=== PATIENT | male | born 1955 | race Two or more races ===

== ENCOUNTER → 2016-11-23 | Outpatient (REF) | payer OTHER | LOC: M SMT 13:04 | PROVIDERS: ATTEND Nurse Practitioner Women's Health | DX: R97.20 Elevated prostate specific antigen [PSA] (principal) ==

== ENCOUNTER → 2016-12-04 | Outpatient (CLI) | payer BC, OTHER ==
[~2016-12-04] MED LIST: ASPI81CH17 PO; ASPI81TAEC PO; ATOR1TAB21 PO; CIPR500T3 PO; CIPR500T89 PO; DOCU100C PO; IBUPOTC PO; NICO14DI20 TD; PEG1POW PO; PERC5TAB6 PO; PERCOCET PO; VITA100037 PO
--- NOTE | 2016-12-04 13:33 | REP ---
TRANSRECTAL PROSTATE ULTRASOUND: 12/04/2016. Clinical history: Elevated PSA. Findings: Images from ultrasound guidance provided to Dr. Martinez of the Urology division for transrectal prostate needle biopsy reviewed. The images show prostate measuring 4.5 x 2.8 x 4.2 cm giving calculated prostate volume 27.7 ml. Seminal vesicles are symmetric and unremarkable. Prostate gland appeared heterogeneous and has some scattered calcifications within it. Technologist documented 12 needle passes for biopsy by the attending urologist. Impression: 1. Status post transrectal needle biopsy of the prostate as described. Heterogeneous prostate appearance with calcifications. Signed by Kevin Gonsalez MD 12/04/2016 03:42 P
== END | disposition home or self-care (01) ==
LOC: M SMT PRO 08:44 → EDUNIT# 09:00
PROVIDERS: ATTEND Nurse Practitioner Women's Health
DX: C61 Malignant neoplasm of prostate (principal); N41.8 Other inflammatory diseases of prostate
CPT/HCPCS: 76872; 76942; G0416

== ENCOUNTER → 2016-12-11 | Outpatient (CLI) | payer OTHER ==
[2016-12-11 13:24] LABS: MEAN CORPUSCULAR HEMOGLOBIN 31.9 pg (27.0-33.0); MEAN CORPUSCULAR HGB CONC 35.4 g/dl (32.0-36.5); MEAN CORPUSCULAR VOLUME 89.9 fl (80.0-96.0); RED CELL DISTRIBUTION WIDTH 12.3 % (11.5-14.5); WHITE BLOOD COUNT 5.1 K/mm3 (4.0-10.0)
--- NOTE | 2016-12-11 13:27 | REP ---
Clinical: Prostate cancer . Comparison: None . Technique: PA and lateral. Findings: The mediastinum and cardiac silhouette are normal. The lung brooks are clear and without acute consolidation, effusion, or pneumothorax. The skeletal structures are intact and normal. Impression: 1. No acute cardiopulmonary process. Signed by Jefferson Vaughan MD 12/11/2016 01:18 P
[2016-12-11 13:36] LABS: INR 1.07
[2016-12-11 13:58] LABS: ANION GAP 6 MEQ/L (8-16); BLOOD UREA NITROGEN 12 MG/DL (7-18); CALCIUM LEVEL 8.6 MG/DL (8.8-10.2); CARBON DIOXIDE LEVEL 28 MEQ/L (21-32); CHLORIDE LEVEL 104 MEQ/L (98-107); CREATININE FOR GFR 0.78 MG/DL (0.70-1.30); GLOMERULAR FILTRATION RATE > 60.0 (>49); GLUCOSE, FASTING 101 MG/DL (80-110); POTASSIUM SERUM 4.4 MEQ/L (3.5-5.1); SODIUM LEVEL 138 MEQ/L (136-145)
--- NOTE | 2016-12-11 17:06 | ECGEPIP ---
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 Electronically Signed On 12-11-2016 16:48:57 EST by Benjamin Juárez
== END ==
LOC: M LAB 12:24
PROVIDERS: ATTEND Urology
DX: Z01.818 Encounter for other preprocedural examination (principal); C61 Malignant neoplasm of prostate

== ENCOUNTER 2016-12-22 05:43 | Inpatient (IN) | payer BC, OTHER ==
[2016-12-22] VITALS (7 sets, daily range): BP systolic 126–154; BP diastolic 60–88
[~2016-12-22] VITALS: Ht 175.3 cm; Wt 83.9 kg
[~2016-12-22 05:43] MED LIST changes: -ASPI81CH17 PO; -ASPI81TAEC PO; -CIPR500T3 PO; -CIPR500T89 PO; -DOCU100C PO; -IBUPOTC PO; -NICO14DI20 TD; -PEG1POW PO; -PERC5TAB6 PO; -PERCOCET PO
[2016-12-22] MEDS ORDERED: LR 1,000 ML IV SCH ×2 (06:00→11:30)
[2016-12-22] MEDS ORDERED: D5W/0.2% SODIUM CHLORIDE 250 ML IV SCH (06:00)
[2016-12-22] MEDS ORDERED: ASPI81CH17 PO (06:47)
[2016-12-22] MEDS ORDERED: METHYLENE BLUE 0.5% (5MG/ML) 10 ML AMP (PROVAYBLUE)(Q9968 PER 1MG) As Ordered ONE (07:11)
[2016-12-22] MEDS ORDERED: METOCLOPRAMIDE INJ 10MG/2ML VIAL (J2765) As Ordered ONE (07:55)
[2016-12-22] MEDS ORDERED: NEOSTIGMINE 1MG/ML 5 ML SYRINGE (J2710) As Ordered ONE (07:55)
[2016-12-22] MEDS ORDERED: fentaNYL 250 MCG/5 ML INJECTION (J3010) As Ordered ONE (07:55)
[2016-12-22] MEDS ORDERED: ONDANSETRON 4MG/2ML VIAL (J2405) As Ordered ONE (07:55)
[2016-12-22] MEDS ORDERED: PROPOFOL 200 MG/20 ML VIAL As Ordered ONE (07:55)
[2016-12-22] MEDS ORDERED: GLYCOPYRROLATE INJ 0.2 MG/ML 2 ML VIAL As Ordered ONE (07:55)
[2016-12-22] MEDS ORDERED: LIDOCAINE 2% INJ 100 MG/5 ML SDV (FOR ANES.) As Ordered ONE (07:55)
[2016-12-22] MEDS ORDERED: ROCURONIUM BROMIDE 50 MG/5 ML VIAL As Ordered ONE (07:55)
[2016-12-22] MEDS ORDERED: diphenhydrAMINE INJ 50MG/ML VIAL (J1200) As Ordered ONE (07:55)
[2016-12-22] MEDS ORDERED: MIDAZOLAM INJ 2 MG/2 ML VIAL (J2250) As Ordered ONE (07:55)
[2016-12-22] MEDS ORDERED: HYDROmorphone HCL 2 MG/ML 1ML VIAL (J1170) As Ordered ONE (08:05)
[2016-12-22] MEDS ORDERED: LABETALOL HCL 100 MG/20 ML VIAL As Ordered ONE (08:18)
[2016-12-22] MEDS ORDERED: KCL 20MEQ IN D5/.45NACL 1000ML As Ordered ONE (11:29)
[2016-12-22] MEDS ORDERED: KETOROLAC 30 MG/ML VIAL (J1885) As Ordered ONE (11:29)
[2016-12-22] MEDS ORDERED: ONDANSETRON 4MG/2ML VIAL (J2405) IV PRN ×2 (11:30→11:45)
[2016-12-22] MEDS ORDERED: METOCLOPRAMIDE INJ 10MG/2ML VIAL (J2765) IV PRN (11:30)
[2016-12-22] MEDS ORDERED: MORPHINE 2 MG/ML 1ML SYRINGE IV PRN (11:30)
[2016-12-22] MEDS ORDERED: PERCOCET 5MG/325MG TAB PO PRN (11:30)
[2016-12-22] MEDS ORDERED: fentaNYL 100 MCG/2 ML INJECTION (J3010) IV PRN (11:30)
[2016-12-22 11:34] LABS: MEAN CORPUSCULAR HEMOGLOBIN 32.1 pg (27.0-33.0); MEAN CORPUSCULAR HGB CONC 34.2 g/dl (32.0-36.5); MEAN CORPUSCULAR VOLUME 93.9 fl (80.0-96.0); RED CELL DISTRIBUTION WIDTH 12.2 % (11.5-14.5); WHITE BLOOD COUNT 9.1 K/mm3 (4.0-10.0)
[2016-12-22] MEDS: KCL 20MEQ IN D5/0.45NS 1000ML 1,000 ML IV SCH ×2 (11:36→18:14)
[2016-12-22 11:44] LABS: ANION GAP 8 MEQ/L (8-16); BLOOD UREA NITROGEN 17 MG/DL (7-18); CALCIUM LEVEL 8.3 MG/DL (8.8-10.2); CARBON DIOXIDE LEVEL 25 MEQ/L (21-32); CHLORIDE LEVEL 105 MEQ/L (98-107); CREATININE FOR GFR 0.96 MG/DL (0.70-1.30); GLOMERULAR FILTRATION RATE > 60.0 (>49); GLUCOSE, FASTING 141 MG/DL (80-110); POTASSIUM SERUM 4.8 MEQ/L (3.5-5.1); SODIUM LEVEL 138 MEQ/L (136-145)
[2016-12-22] MEDS ORDERED: MORPHINE 4 MG/ML 1ML SYRINGE IV PRN (11:45)
[2016-12-22] MEDS: oxyCODONE 5MG TAB PO PRN ×2 (11:45→21:02)
[2016-12-22] MEDS: PANTOPRAZOLE 40MG INJ (PROTONIX) (C9113) IV SCH (13:06)
[2016-12-22] MEDS ORDERED: ACETAMINOPHEN TAB 650MG DOSE (2X325MG) PO SCH (14:00)
[2016-12-22] MEDS: ACETAMINOPHEN 650MG ER TAB (TYLENOL ARTHRITIS) PO SCH ×2 (14:00→21:03)
[2016-12-22] MEDS: CIPROFLOXACIN 500 MG TAB PO SCH (17:22)
[2016-12-22] MEDS ORDERED: KETOROLAC 30 MG/ML VIAL (J1885) IV SCH (20:00)
[2016-12-22] MEDS: KETOROLAC 30 MG/ML VIAL (J1885) IV SCH (21:04)
[2016-12-23] MEDS: oxyCODONE 5MG TAB PO PRN ×4 (01:47→16:04)
[2016-12-23] MEDS: KCL 20MEQ IN D5/0.45NS 1000ML 1,000 ML IV SCH ×2 (01:52→09:48)
[2016-12-23 02:00] VITALS: BP 159/77
[2016-12-23] MEDS: KETOROLAC 30 MG/ML VIAL (J1885) IV SCH (05:00)
[2016-12-23] MEDS: CIPROFLOXACIN 500 MG TAB PO SCH (05:08)
[2016-12-23 06:00] VITALS: BP 137/67
[2016-12-23] MEDS: ACETAMINOPHEN 650MG ER TAB (TYLENOL ARTHRITIS) PO SCH ×2 (06:19→13:39)
[2016-12-23 07:04] LABS: MEAN CORPUSCULAR HEMOGLOBIN 31.8 pg (27.0-33.0); MEAN CORPUSCULAR VOLUME 96.1 fl (80.0-96.0); RED CELL DISTRIBUTION WIDTH 12.5 % (11.5-14.5); WHITE BLOOD COUNT 6.4 K/mm3 (4.0-10.0)
[2016-12-23 07:24] LABS: ANION GAP 8 MEQ/L (8-16); BLOOD UREA NITROGEN 11 MG/DL (7-18); CARBON DIOXIDE LEVEL 26 MEQ/L (21-32); CHLORIDE LEVEL 103 MEQ/L (98-107); CREATININE FOR GFR 0.83 MG/DL (0.70-1.30); GLOMERULAR FILTRATION RATE > 60.0 (>49); GLUCOSE, FASTING 130 MG/DL (80-110); POTASSIUM SERUM 4.4 MEQ/L (3.5-5.1); SODIUM LEVEL 137 MEQ/L (136-145)
[2016-12-23 10:00] VITALS: BP 142/74
--- NOTE | 2016-12-23 11:54 | RO ---
DATE OF PROCEDURE: 12/22/2016 PREPROCEDURE DIAGNOSIS: Prostate cancer. POSTPROCEDURE DIAGNOSIS: Prostate cancer. FINDINGS: Prostate and seminal vesicles. SURGERY PERFORMED: Robotic-assisted radicle prostatectomy. SURGEON: Dr. Se Martinez GAS LINE SERVICER: Mitzi Sosa NP ANESTHESIA: General. ESTIMATED BLOOD LOSS: 100 mL. COMPLICATIONS: None. HISTORY OF PRESENT ILLNESS: This is a 61-year-old male patient with clinical stage cT1c NxMx prostate cancer [place] 6, six positive biopsies out of 12. The patient has consented for a robotic-assisted radical prostatectomy and for this reason, we are doing this procedure today. PROCEDURE DESCRIPTION: In a patient in supine modified low lithotomy position under general anesthesia after prepping and draping the area of concern, which included the entire genitalia and abdomen, we started by doing an incision infraumbilically, longitudinally 2 cm in length in the midline. Through this incision, we opened the anterior Retzius fascia aponeurosis for about 2 cm in length longitudinally. In the midline, we reintroduced our finger and did a finger dissection of the Retzius space. We then introduced a balloon SpaceMaker to create a Retzius space further on. We then proceeded to take the balloon Spacemaker and put a balloon trocar, inflated the balloon trocar to 40 mL. Through this balloon trocar, we insufflated CO2 to distend the Retzius space with CO2. With the hand held robotic camera 0 degrees 10 mm, we assisted the placement of the other trocars in a fan-shaped manner, two on the right side, 8 mm metallic robotic trocars were placed, by each other by 8 cm, two on the left side, one 12 mm VersaStep for the multimedia production assistant port 8 cm away from the midline one 8 cm away from the VersaStep, one 8 mm robotic metallic trocar. All of the trocars were placed in a fan shaped manner. Once the trocars were positioned, the patient was positioned in steep Trendelenburg position. We then proceeded to dock the robot, using on the left arm monopolar scissors and on the right arm bipolar PK and a ProGrasp. We then proceeded to actively do defat by taking out the periprostatic fat to analyze the anatomy the prostate gland and the endopelvic fascia. We then proceeded with Monoplar scissors to score the endopelvic fascia on the left side, opening the left endopelvic fascia from base to apex and on the right side doing the same procedure. We then proceeded to actually change the scissors and the bipolar PK for two needle holders. With a CT1 needle and #0 Vicryl, we ligated the dorsal vein complex times two and then proceeded to actively, with the monopolar scissors, to cut the anterior bladder neck until we find the Langley catheter. We deflated the balloon of the Lagnley catheter, grabbed the Langley catheter with the third arm and put into traction the Langley with the third arm anteriorly to put into traction the posterior bladder neck. With Monopolar scissors, we dissected the posterior bladder neck and then landed into the vas deferens and seminal vesicles. The vas deferens and seminal vesicles were identified and we dissected the vas deferens and seminal vesicles bilaterally and with a ProGrasp we grabbed the vas deferens and seminal vesicles and pulled it up anteriorly to put into traction the posterior Denonvilliers fascia. We then scored the posterior Denonvilliers fascia with monopolar scissors and dissected the rectum away from the prostate gland from base to apex. With extra large Hem-o-loks we secured the prostatic arteries times four on the left side and times four on the right side. We then mobilized the prostate gland from base to apex. It was only attached to the dorsal vein complex. At that moment in time, we cut the dorsal vein complex with monopolar scissors and then secured the dorsal vein complex by doing hemostasis with a #3-0 V-Loc in a running fashion. Once hemostasis of the dorsal vein complex was secured, we cut the urethra and placed the prostate and seminal vesicles into a 10 mm Endo Catch bag. We then proceeded to grab our needle holders and do a posterior reconstruction Yair stitch with a #3-0 Vicryl in a running fashion. We then proceeded to do urethral vesicle anastomosis with a double needle absorbable linda suture of quill #2-0. We started at 6 o'clock in the bladder outside-in and inside-out in the urethra running 360 degrees around the clock. We then passed a #20 Georgian Langley catheter and inflated the balloon to 20 mL. We then tied our anastomosis. We took all the needles out and the count was correct. We then proceeded to test our anastomosis with 100 mL of normal saline. There were no leaks. At that moment in time, we undocked the third arm, took all the instruments out from the third arm, placed a J-P round drain, 15 to the pelvis to actually do a drainage to suction. We then took all the instruments out. Undocked the robot. Took the trocars out and then sutured ligated the drain to the skin with #3-0 nylon. We then proceeded to extract the prostate and seminal vesicles in an Endo Catch bag through the midline incision. We closed the midline incision with a UR 6, #2-0 Vicryl in a running fashion. We closed the skin with subcuticular stitches in a running fashion, #4-0 Monocryl. We placed Mastisol and Steri-Strips, 2x2, Telfa and Tegaderm in each incision of the trocars. The drain was placed to bulb suction. PLAN: The patient will pass to recovery and then to the floor. Once he is tolerating a regular diet and ambulating very well, he will be discharged home. He has the Langley catheter draining to gravity and a J-P to bulb suction. Specimens were sent for permanent pathology analysis as prostate and seminal vesicles. There were no complications of surgery. ESTIMATED BLOOD LOSS: 100 mL.
[2016-12-23] MEDS: PANTOPRAZOLE 40MG INJ (PROTONIX) (C9113) IV SCH (13:39)
[2016-12-23 14:00] VITALS: BP 134/84
[2016-12-23] MEDS ORDERED: CIPR500T3 PO (15:21)
[2016-12-23] MEDS ORDERED: PERCOCET PO (15:21)
--- NOTE | 2016-12-24 14:18 | DSES ---
DATE OF ADMISSION: 12/22/2016 DATE OF DISCHARGE: 12/23/2016 ADMISSION DIAGNOSIS: Prostate cancer. DISCHARGE DIAGNOSIS: Prostate cancer. SURGERY PERFORMED: Robotic-assisted radical prostatectomy. SURGEON: Se Martinez MD ADMITTING PHYSICIAN: Se Martinez MD DISCHARGE PHYSICIAN: Se Martinez MD HISTORY OF PRESENT ILLNESS: This is a 61-year-old male patient with a clinical stage cT1c Nx Mx prostate cancer, [place] 6 and six biopsies positive out of 12. The patient consented for robotic-assisted radical prostatectomy. For this reason, we carried out this surgery on 12/22/2016. HOSPITALIZATION COURSE: The patient, by postoperative day #1, was tolerating a regular diet. He was ambulating very well. Pain was controlled with oral pain medications. His urine output was adequate of around 700 mL per shift. His EFREN drainage was 70 mL and 20 mL the last shift. He has no nausea and no vomiting. The patient requested to go home and we agreed upon this. The patient will be going home with the following indications: - Ciprofloxacin 500 mg one tablet by mouth twice a day - Percocet 5/325 mg one tablet by mouth every 6 hours as needed for pain - stool softener as needed over the counter - ibuprofen as needed over the counter He cannot carry heavy weight lifting above 20 pounds. Langley will be going to gravity. No driving under narcotics for two weeks. He may shower, no sit baths. He will followup with us in 10 days for a voiding trial.
== END 2016-12-23 16:20 | disposition home or self-care (01) | DRG 484 ==
LOC: M OR 05:43 → M MS5PR 12:15
PROVIDERS: ADMIT Urology; ATTEND Urology
PROC: 8E0W4CZ Robotic Assisted Procedure of Trunk Region, Percutaneous Endoscopic Approach (ICD-10-PCS; 2016-12-22)
PROC: 0VT04ZZ Resection of Prostate, Percutaneous Endoscopic Approach (ICD-10-PCS; principal; 2016-12-22 07:30)
DX: C61 Malignant neoplasm of prostate (principal); E55.9 Vitamin D deficiency, unspecified; N52.9 Male erectile dysfunction, unspecified; E78.5 Hyperlipidemia, unspecified; F17.210 Nicotine dependence, cigarettes, uncomplicated; Z79.82 Long term (current) use of aspirin; Z79.899 Other long term (current) drug therapy; Z88.8 Allergy status to other drugs, medicaments and biological substances

== ENCOUNTER 2016-12-24 17:11 | Inpatient (IN) | payer BC, OTHER ==
[~2016-12-24] VITALS: Ht 172.7 cm; Wt 83.6 kg
[~2016-12-24 17:11] MED LIST changes: +ASPI81CH17 PO; +CIPR500T3 PO; +PERCOCET PO
[2016-12-24 18:44] LABS: BASO % 0.3 % (0.0-1.0); EOS # 0.2 K/mm3 (0.0-0.50); EOS % 2.5 % (0.0-3.0); LARGE UNSTAINED CELL # 0.1 K/mm3 (0.0-0.4); LARGE UNSTAINED CELL % 1.3 % (0.0-4.0); LYMPH # 1.1 K/mm3 (1.5-4.5); LYMPH % 14.1 % (24.0-44.0); MEAN CORPUSCULAR HEMOGLOBIN 32.1 pg (27.0-33.0); MEAN CORPUSCULAR HGB CONC 35.2 g/dl (32.0-36.5); MONO # 0.6 K/mm3 (0.0-0.8); MONO % 7.8 % (0.0-5.0); NEUTROPHILS # 5.4 K/mm3 (1.8-7.7); PLATELET COUNT, AUTOMATED 184 k/mm3 (150-450); RED CELL DISTRIBUTION WIDTH 12.2 % (11.5-14.5); WHITE BLOOD COUNT 7.3 K/mm3 (4.0-10.0)
[2016-12-24 19:00] LABS: MEAN CORPUSCULAR VOLUME 91.1 fl (80.0-96.0)
[2016-12-24 19:16] LABS: ALBUMIN 3.7 GM/DL (3.2-5.2); ALBUMIN/GLOBULIN RATIO 1.19 (1.00-1.93); ALKALINE PHOSPHATASE 108 U/L (45-117); ALT/SGPT 16 U/L (12-78); ANION GAP 10 MEQ/L (8-16); AST/SGOT 16 U/L (15-37); BILIRUBIN,DIRECT 0.1 MG/DL (0.0-0.2); BILIRUBIN,TOTAL 0.5 MG/DL (0.2-1.0); BLOOD UREA NITROGEN 7 MG/DL (7-18); CALCIUM LEVEL 8.4 MG/DL (8.8-10.2); CARBON DIOXIDE LEVEL 26 MEQ/L (21-32); CHLORIDE LEVEL 101 MEQ/L (98-107); CREATININE FOR GFR 0.74 MG/DL (0.70-1.30); GLOMERULAR FILTRATION RATE > 60.0 (>49); GLUCOSE, FASTING 105 MG/DL (80-110); POTASSIUM SERUM 3.8 MEQ/L (3.5-5.1); SODIUM LEVEL 137 MEQ/L (136-145); TOTAL PROTEIN 6.8 GM/DL (6.4-8.2)
--- NOTE | 2016-12-24 19:41 | REP ---
AP PORTABLE CHEST: 12/24/2016: Comparison: 12/11/2016. Clinical history: Dyspnea and cough. Findings: Seated portable chest with lordotic projection limits evaluation of the posterior and lower lung zones. Heart size exaggerated by projection but is normal. Overall the aorta is normal for age. Airway is intact. There is mild linear fibrotic change or atelectatic change in the bilateral lower lung zones. No effusion, dense consolidation with air bronchograms or other acute finding. There are pedicle screws and arch bars in the lower cervical spine from a posterior fusion with anterior plate and fusion device with screws in the lower cervical spine. Minor degenerative changes of the AC joints. Impression: 1. Minor subsegmental linear fibrotic or atelectatic change in the lung bases. No dense consolidation, effusion, cardiomegaly or edema. Signed by Kevin Gonsalez MD 12/24/2016 07:54 P
--- NOTE | 2016-12-24 20:47 | ECGEPIP ---
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
[2016-12-24 21:59] LABS: ABG BASE EXCESS 2.6 (-2.0-2.0); ABG HCO3 24.6 MEQ/L (22.0-26.0); ABG PARTIAL PRESSURE CO2 30.4 mmHg (35.0-45.0); ABG PARTIAL PRESSURE O2 74.3 mmHg (75.0-100.0); ABG STANDARD HCO3 26.8 MEQ/L (22.0-26.0); ABG TOTAL CO2 25.5 MEQ/L (23.0-31.0); ABG pH (ARTERIAL) 7.526 UNITS (7.350-7.450)
[2016-12-24] MEDS ORDERED: ISOVUE-370 76% 100ML VIAL (Q9967) As Ordered ONE (22:05)
--- NOTE | 2016-12-24 23:00 | REPUSA ---
CLINICAL HISTORY: Dyspnea, exclude PE. TECHNIQUE: Multiple incremental axial, coronal and oblique images are obtained from the thoracic inle t to the upper abdomen. Intravenous contrast material was administered as per pulmonary embolism prot ocol. COMMENTS: There is excellent opacification of pulmonary arterial system without evidence for pulmonary embolism . Aorta is of normal caliber without evidence for dissection or aneurysm. There is no evidence of pleural or parenchymal mass. There are no pleural effusions. There is no evid ence of hilar or mediastinal lymphadenopathy. The heart and great vessels are within normal limits. Images of the upper abdomen demonstrate no evidence of adrenal mass. Free air under the diaphragm is noted, viscus perforation is not excluded. Follow up with CT A/P is recommended. The bony structures are free of lytic or blastic lesions. Multilevel degenerative changes are seen in volving the visualized thoracolumbar spine. Scattered calcifications are seen involving the aorta and major branches compatible with atherosclero sis. IMPRESSION: No evidence for pulmonary embolism. Free air under the diaphragm is noted, viscus perforation is not excluded. Follow up with CT A/P is recommended. D/w Dr Monteiro at 10-50 pm EST. Thank you for your kind referral of this patient.
[2016-12-25] MEDS ORDERED: IBUPOTC PO (00:28)
[2016-12-25] MEDS ORDERED: DOCU100C PO (00:28)
[2016-12-25] MEDS ORDERED: PERC5TAB6 PO (00:28)
[2016-12-25] MEDS ORDERED: CIPR500T89 PO (00:28)
[2016-12-25] MEDS ORDERED: ASPI81TAEC PO (00:30)
[2016-12-25] MEDS ORDERED: FUROSEMIDE 40 MG/4 ML VIAL (J1940) IV ONE (02:45)
[2016-12-25] MEDS ORDERED: BISACODYL 5 MG TAB PO PRN (02:45)
[2016-12-25] MEDS ORDERED: LEVALBUTEROL 1.25 MG/0.5 ML CONCENTRATE NEB INH PRN (02:45)
[2016-12-25] MEDS ORDERED: IPRATROPIUM 0.02% SOLN 0.5MG/2.5 ML NEB INH PRN (02:45)
[2016-12-25] MEDS ORDERED: ACETAMINOPHEN TAB 650MG DOSE (2X325MG) PO PRN (02:45)
--- NOTE | 2016-12-25 03:53 | HPE ---
DATE OF ADMISSION: 12/25/2016 PRIMARY CARE PROVIDER: Dr. Mendez. CHIEF COMPLAINT: Shortness of breath. HISTORY OF PRESENT ILLNESS: The patient is a 61-year-old man who has been in his usual state of health. Several weeks ago he was diagnosed with prostate cancer and he was actually taken to the operating room on 12/22/2016, for a robotic-assisted radical prostatectomy by Dr. Martinez. The patient tolerated the procedure well and was discharged home the following day on the . Subsequently on the , he awoke with shortness of breath even at rest that prompted him to present to [facility]. While in the emergency room there and wearing oxygen, his symptoms did spontaneously resolve. He states that they completed all the same tests they did in [facility]'s Emergency Room today. He felt better and went home. Progressively his shortness of breath worsened once again to the point where he was feeling warm and hot flashes and then cool chills intermittently and it prompted him to present back to the emergency room, this time here at [facility]. At the present time, the patient tells me that his symptoms are actually better. His shortness of breath is improved at this time. He is not having the chills or hot flashes. While in the emergency room, he was noted to have an oxygen requirement of 2 liters where he had spontaneously dipped down saturations into the high 80s. While I am examining him at the present time, his saturation is 96% on 2 liters and I turned him down to 1 liter and he maintains his saturation. PAST MEDICAL HISTORY: 1. Tobacco, greater than 40 pack-year history. 2. Left bundle branch block. 3. Dyslipidemia. 4. Erectile dysfunction. 5. Vitamin D deficiency. HOME MEDICATIONS: - ciprofloxacin 500 mg by mouth twice a day - he has been discharged on Percocet as needed since his discharge as well - stool softener - ibuprofen 600 mg as needed for pain - Viagra 100 mg as needed - Lipitor 20 mg daily - aspirin 81 mg, the patient has not taken for 1 month - vitamin D 1000 units daily, the patient has not taken for 1 month PAST SURGICAL HISTORY: 1. Cervical metal plate secondary to degenerative cervical disease. 2. Left inguinal hernia repair. ALLERGIES: The patient has an allergy CHANTIX, he gets anxiety. FAMILY HISTORY: Noncontributory. REVIEW OF SYSTEMS: Negative other than history of present illness (HPI). SOCIAL HISTORY: The patient is an active smoker with a 40 pack-year history. He denies any alcohol or illicit drug use. He lives with his family, who all accompany him in the emergency room. PHYSICAL EXAMINATION: VITAL SIGNS: Temperature 97.6, pulse 88, respiratory rate 15, blood pressure 154/88, oxygen saturation 96% on 1 liter of oxygen. GENERAL: He is a pleasant, elderly, man lying in bed at a 30 degree angle. He does not appear to be in any acute distress. He appears quite comfortable at this time. He is accompanied by his , his daughter and son-in-law. HEENT: Cranial nerves II-XII are grossly intact. He has moist mucous membranes. I do not appreciate significant elevation of central venous pressure (CVP) on exam, but he does have some worsening shortness of breath when lying flat. CARDIOVASCULAR EXAMINATION: S1, S2, regular. RESPIRATORY EXAMINATION: Fairly clear. ABDOMINAL EXAMINATION: Benign. EXTREMITIES: No clubbing, cyanosis. There is trace edema bilaterally. LABORATORY STUDIES: WBC 7.3, hemoglobin 13.7, hematocrit 38.9, platelet count 184. Chemistry panel: Sodium 137, potassium 3.8, chloride 101, bicarbonate 26, BUN 7, creatinine 0.7. Liver function tests within normal limits. One set of cardiac enzymes is negative. An arterial blood gas revealed a pH of 7.5, pCO2 of 30.4, pO2 of 74.3. An influenza swab is negative. Blood cultures are currently pending. IMAGING: The patient did have a CT angiography of the chest that revealed no PE, but did reveal free air under the diaphragm. ASSESSMENT AND PLAN: This is a 61-year-old man with postoperative dyspnea. 1. Postoperative dyspnea and hypoxia. The etiology is not immediately clear at this time. He may have some postoperative atelectasis; however, he has been quite compliant with incentive spirometry at home. We will continue this here. That is why I think this may be less likely. It is also certainly possible he is mildly overdosing on the Percocet, which is a new medication for him. We will discontinue further narcotics. We will provide him with nonsteroidal antiinflammatory drugs (NSAIDs) as needed. This would also explain the intermittent nature of his symptoms. At this present time, he does not appear to be grossly septic. I do not have concern for pneumonia. Will check a respiratory panel to rule out any viral infection. It is also possible that he did receive intravenous (IV) fluids during his hospitalization. He has a Langley catheter in place. I will empirically give him 40 of IV Lasix to see if this improves his symptoms. He may have some mild pulmonary edema. The patient also has significant tobacco history. Although he has no documented history of chronic obstructive pulmonary disease (COPD), he has a greater than 40 pack-year history of active tobacco use. I will provide him with nebulizer treatments and check an echocardiogram and monitor him for improvement with these measures. 2. Left bundle branch block. He will be admitted to the progressive care unit. We will monitor him on telemetry to rule out any intermittent arrhythmia. We will trend his troponins and check an echocardiogram. The patient is normally on aspirin, which has been held for the last 1 month. 3. Dyslipidemia. Continue with his Lipitor. 4. Prostate cancer status post prostatectomy. Continue with ciprofloxacin as per Dr. Martinez. 5. Tobacco use. As outlined above. Cessation counseling offered. He has declined a nicotine patch. 6. Deep venous thrombosis (DVT) prophylaxis. The patient will be on heparin. DISPOSITION: The patient is admitted to the progressive care unit to Dr. Loaiza's service who will continue following the patient at 7 a.m.
[2016-12-25 05:05] VITALS: BP 137/74
[2016-12-25 07:02] LABS: MEAN CORPUSCULAR VOLUME 91.5 fl (80.0-96.0); RED CELL DISTRIBUTION WIDTH 12.2 % (11.5-14.5); WHITE BLOOD COUNT 6.6 K/mm3 (4.0-10.0)
[2016-12-25 07:18] LABS: ANION GAP 12 MEQ/L (8-16); BLOOD UREA NITROGEN 8 MG/DL (7-18); CALCIUM LEVEL 8.7 MG/DL (8.8-10.2); CARBON DIOXIDE LEVEL 25 MEQ/L (21-32); CHLORIDE LEVEL 101 MEQ/L (98-107); CREATININE FOR GFR 0.64 MG/DL (0.70-1.30); GLOMERULAR FILTRATION RATE > 60.0 (>49); GLUCOSE, FASTING 106 MG/DL (80-110); POTASSIUM SERUM 3.9 MEQ/L (3.5-5.1); SODIUM LEVEL 138 MEQ/L (136-145)
[2016-12-25 08:00] VITALS: BP 119/66
[2016-12-25] MEDS ORDERED: ISOVUE-370 76% 100ML VIAL (Q9967) As Ordered ONE (08:49)
[2016-12-25] MEDS: ATORVASTATIN 20 MG TAB PO SCH (09:18)
[2016-12-25] MEDS: CIPROFLOXACIN 500 MG TAB PO SCH ×2 (09:18→21:42)
[2016-12-25] MEDS: KETOROLAC TROMETHAMINE 10 MG TAB PO PRN ×2 (09:18→21:58)
[2016-12-25] MEDS: HEPARIN SOD (PORCINE) 5000 UNITS/ML VIAL SC SCH ×2 (09:18→21:41)
[2016-12-25] MEDS: DOCUSATE SODIUM 100 MG CAP PO SCH ×2 (09:19→21:42)
[2016-12-25] MEDS: LEVALBUTEROL 1.25 MG/0.5 ML CONCENTRATE NEB INH SCH ×4 (10:11→20:16)
[2016-12-25] MEDS: IPRATROPIUM 0.02% SOLN 0.5MG/2.5 ML NEB INH SCH ×4 (10:11→20:17)
--- NOTE | 2016-12-25 11:18 | REP ---
CT abdomen and pelvis with IV contrast:. History: Free air under the diaphragms seen on CT pulmonary angiogram from the previous evening. The patient is postoperative day #3 having had robotic-assisted radical prostatectomy. CT contrast dose: 50 ml of Isovue [address] findings: Digital preliminary hand sewer shoes radiograph shows a few loops of air-filled small bowel in the left central abdomen, nonspecific. A Langley catheter is seen. The CT study confirms the presence of scattered tiny bubbles of disbursed free intraperitoneal air. There is also multifocal pattern of dispersed small soft tissue emphysema along the anterolateral abdominal wall bilaterally extending to the flanks. This is most pronounced in the inguinal extra-abdominal soft tissues and in the suprapubic region. This extends into the scrotum and left proximal groin. There is intra-abdominal peritoneal air extending from the dome of the diaphragm to the mid pelvic level although the amount of intraperitoneal air is quite small. This is consistent with expected postoperative change. No hematoma is seen. There is mild discoid atelectasis in the right lower lobe of the lung. There is some vicarious excretion of previously administered intravenous contrast in the gallbladder lumen. No adrenal lesion is seen. The pancreas is unremarkable. Kidneys and appendix are normal. No retroperitoneal mass, hematoma or adenopathy. No pelvic hematoma is seen. Urinary bladder is noted. There is some diffuse bladder wall thickening. Impression: Disbursed intraperitoneal and abdominal wall postoperative air, as expected 3 days post robotic-assisted laparoscopic prostatectomy. No complication identified. Langley catheter in place. Signed by Sheldon Mcfadden MD 12/25/2016 03:27 P
[2016-12-25 12:00] VITALS: BP 129/69
[2016-12-25] MEDS: VITAMIN D 1,000 INTERNATIONAL UNITS TABLET PO SCH (12:07)
[2016-12-25] MEDS ORDERED: MORPHINE 2 MG/ML 1ML SYRINGE IV PRN (14:30)
[2016-12-25] MEDS ORDERED: PERCOCET 5MG/325MG TAB PO PRN (14:30)
[2016-12-25 16:00] VITALS: BP 129/77
[2016-12-25 17:00] VITALS: BP 142/81
[2016-12-25 20:00] VITALS: BP 123/72
[2016-12-26] VITALS: BP 135/81
[2016-12-26 04:00] VITALS: BP 127/81
[2016-12-26 05:41] LABS: MEAN CORPUSCULAR HEMOGLOBIN 31.6 pg (27.0-33.0); MEAN CORPUSCULAR HGB CONC 34.9 g/dl (32.0-36.5); MEAN CORPUSCULAR VOLUME 90.7 fl (80.0-96.0); RED CELL DISTRIBUTION WIDTH 11.9 % (11.5-14.5); WHITE BLOOD COUNT 6.8 K/mm3 (4.0-10.0)
[2016-12-26 05:55] LABS: ANION GAP 10 MEQ/L (8-16); BLOOD UREA NITROGEN 14 MG/DL (7-18); CALCIUM LEVEL 8.3 MG/DL (8.8-10.2); CARBON DIOXIDE LEVEL 26 MEQ/L (21-32); CHLORIDE LEVEL 99 MEQ/L (98-107); CREATININE FOR GFR 0.73 MG/DL (0.70-1.30); GLOMERULAR FILTRATION RATE > 60.0 (>49); GLUCOSE, FASTING 121 MG/DL (80-110); SODIUM LEVEL 135 MEQ/L (136-145)
[2016-12-26] MEDS: IPRATROPIUM 0.02% SOLN 0.5MG/2.5 ML NEB INH SCH ×4 (07:08→19:19)
[2016-12-26] MEDS: LEVALBUTEROL 1.25 MG/0.5 ML CONCENTRATE NEB INH SCH ×4 (07:08→19:19)
[2016-12-26 08:00] VITALS: BP 132/77
[2016-12-26] MEDS: VITAMIN D 1,000 INTERNATIONAL UNITS TABLET PO SCH (09:55)
[2016-12-26] MEDS: ATORVASTATIN 20 MG TAB PO SCH (09:55)
[2016-12-26] MEDS: DOCUSATE SODIUM 100 MG CAP PO SCH ×2 (09:55→20:40)
[2016-12-26] MEDS: HEPARIN SOD (PORCINE) 5000 UNITS/ML VIAL SC SCH ×2 (09:55→20:40)
[2016-12-26] MEDS: CIPROFLOXACIN 500 MG TAB PO SCH ×2 (09:55→20:40)
[2016-12-26 12:00] VITALS: BP 128/73
--- NOTE | 2016-12-26 13:37 | IPNPDOC ---
Text Note Date of Service The patient was seen on 12/26/16. NOTE Subjective: Pt states his SOB has significantly improved. He is ambulating without dyspnea. No CP/palpitations. Objective: Vitals: (see below) General: No acute distress, laying comfortably in bed. HEENT: Moist mucous membranes. Neck: No JVD or lymphadenopathy Cardiac: RRR, No murmurs Pulm: Fine breath sounds b/l bases. No wheezing, rhonchi Abd: NT/ND + BS. Incision site clean and dry. No signs of erythema. Ext: No edema or cyanosis Labs (see below) Images: CT Abd/pelvis 12/25/16 Impression: Disbursed intraperitoneal and abdominal wall postoperative air, as expected 3 days post robotic-assisted laparoscopic prostatectomy. No complication identified. Langley catheter in place. CTA Chest 12/25/16 COMMENTS: There is excellent opacification of pulmonary arterial system without evidence for pulmonary embolism. Aorta is of normal caliber without evidence for dissection or aneurysm. There is no evidence of pleural or parenchymal mass. There are no pleural effusions. There is no evidence of hilar or mediastinal lymphadenopathy. The heart and great vessels are within normal limits. Images of the upper abdomen demonstrate no evidence of adrenal mass. Free air under the diaphragm is noted, viscus perforation is not excluded. Follow up with CT A/P is recommended. The bony structures are free of lytic or blastic lesions. Multilevel degenerative changes are seen involving the visualized thoracolumbar spine. Scattered calcifications are seen involving the aorta and major branches compatible with atherosclerosis. IMPRESSION: No evidence for pulmonary embolism. Free air under the diaphragm is noted, viscus perforation is not excluded. Follow up with CT A/P is recommended. D/w Dr Monteiro at 10-50 pm EST. Assessment/Plan 1. Dyspnea and Hypoxia - likely 2/2 post-op atelectasis and decreased inspiration from abd pain s/p prostectomy. CTA negative for PE/PNA. Echocardiogram pending. NSAIDs for pain control. Off O2 now and ambulating. 2. Chronic LBBB - no cp/palpitations. CE negative. 3. HLD - cont statin 4. Prostate ca s/p proctectomy. On cipro by Dr. Martinez. Langley in place since surgery until seen outpt by Dr. Martinez 5. Tobaccoabuse - was counseled on cessation and has declined nicotine patch on admission. DVT prophy: Heparin SQ Dispo: Plan to d/c in the next 24 hrs. VS,Fishbone, I+O VS, Fishbone, I+O Laboratory Tests 12/26/16 05:10 Calcium Level 8.3 L, Red Blood Count 4.17 L, Mean Corpuscular Volume 90.7, Mean Corpuscular Hemoglobin 31.6, Mean Corpuscular Hemoglobin Concent 34.9, Red Cell Distribution Width 11.9 Vital Signs Date Time Temp Pulse Resp B/P Pulse Ox O2 Delivery O2 Flow Rate FiO2 12/26/16 11:00 97 Room Air 12/26/16 08:00 97.5 77 18 132/77 12/26/16 00:00 2.0 I&O- Last 24 Hours up to 6 AM 12/26/16 06:00 Intake Total 940 ml Output Total 1175 ml Balance -235 ml ALLIE DANGELO MD Dec 26, 2016 13:37
[2016-12-26] MEDS ORDERED: MOM 30ML SUSPENSION UDC PO PRN (14:30)
[2016-12-26] MEDS: MIRALAX *UNIT DOSE* 17GM PACKET PO SCH ×2 (15:45→20:40)
[2016-12-26 16:00] VITALS: BP 127/82
[2016-12-26 20:00] VITALS: BP 123/80
[2016-12-27] VITALS: BP 141/77
[2016-12-27 04:00] VITALS: BP 132/72
[2016-12-27 05:49] LABS: MEAN CORPUSCULAR HEMOGLOBIN 30.7 pg (27.0-33.0); MEAN CORPUSCULAR HGB CONC 33.7 g/dl (32.0-36.5); MEAN CORPUSCULAR VOLUME 90.9 fl (80.0-96.0); RED CELL DISTRIBUTION WIDTH 11.9 % (11.5-14.5); WHITE BLOOD COUNT 6.7 K/mm3 (4.0-10.0)
[2016-12-27 06:03] LABS: ANION GAP 10 MEQ/L (8-16); BLOOD UREA NITROGEN 8 MG/DL (7-18); CALCIUM LEVEL 8.6 MG/DL (8.8-10.2); CARBON DIOXIDE LEVEL 25 MEQ/L (21-32); CHLORIDE LEVEL 102 MEQ/L (98-107); CREATININE FOR GFR 0.83 MG/DL (0.70-1.30); GLOMERULAR FILTRATION RATE > 60.0 (>49); GLUCOSE, FASTING 139 MG/DL (80-110); SODIUM LEVEL 137 MEQ/L (136-145)
[2016-12-27] MEDS: LEVALBUTEROL 1.25 MG/0.5 ML CONCENTRATE NEB INH SCH (07:19)
[2016-12-27] MEDS: IPRATROPIUM 0.02% SOLN 0.5MG/2.5 ML NEB INH SCH (07:19)
[2016-12-27 08:00] VITALS: BP 126/68
[2016-12-27] MEDS: DOCUSATE SODIUM 100 MG CAP PO SCH (09:00)
[2016-12-27] MEDS: MIRALAX *UNIT DOSE* 17GM PACKET PO SCH (09:00)
[2016-12-27] MEDS: HEPARIN SOD (PORCINE) 5000 UNITS/ML VIAL SC SCH (09:00)
[2016-12-27] MEDS: ATORVASTATIN 20 MG TAB PO SCH (09:27)
[2016-12-27] MEDS: VITAMIN D 1,000 INTERNATIONAL UNITS TABLET PO SCH (09:27)
[2016-12-27] MEDS: CIPROFLOXACIN 500 MG TAB PO SCH (09:27)
[2016-12-27] MEDS ORDERED: NICO14DI20 TD (09:47)
[2016-12-27] MEDS ORDERED: PEG1POW PO (09:47)
--- NOTE | 2016-12-27 11:33 | ECHO ---
DATE OF PROCEDURE: 12/25/2016 HEIGHT: 68 inches. WEIGHT: 202 pounds. BODY SURFACE AREA: 2.05 meters squared. REFERRING PHYSICIAN: Dr. Wilfrido Ga. INDICATION: Dyspnea. MEASUREMENTS: 2D Measurements: RV - 3.8 cm LV - 4.8 cm Septum - 1.2 cm Posterior wall - 1.1 cm Aortic root - 3.4 cm LA - 4.0 cm. LVEF - 60% Doppler Measurements: AV - 1.3 meters per second LVOT - 1.1 meters per second LVOT diameter 2.3 cm MV-E - 45, A - 57, E/A ratio 0.8 Early mitral deceleration time 280 milliseconds E prime - 6.2, A prime -12, E/E prime ratio 7. PV - 0.95 meters per second Pulmonary artery acceleration time 87 milliseconds RVSP - 42 to 47 mmHg IVC - 1.8 cm COMMENTS: Normal sinus rhythm with left bundle branch block. Mildly dilated left atrium but normal left ventricular size. Right heart chambers were upper limits of normal in size. LV wall thickness was upper limits of normal to slightly hypertrophied. On real-time imaging from the parasternal and apical projections, there appeared to be a localized proximal septal wall motion abnormality but other lay move normally. Normal-appearing mitral valvular apparatus and leaflet excursion with no posterior systolic buckling. Three equal size aortic cusps of normal thickness and cusp separation. Normal aortic root size. No apparent intracardiac mass or pericardial effusion. Color flow Doppler study taken from the parasternal and projection showed very mild mitral, mild tricuspid but no aortic insufficiency. Guided continuous wave Doppler of his aortic valve showed a normal peak systolic velocity against LV outflow tract obstruction. Pulsed and continuous wave Doppler of his LV inflow tract taken from the apical four-chamber projection showed normal diastolic filling velocities against mitral stenosis. There was more prominent late diastolic/atrial dependent filling pattern. The degree of LV diastolic dysfunction was confirmed by a prolonged early mitral deceleration time and tissue Doppler of his mitral annulus. His current estimated mean left atrial pressure however was within normal limits. Pulsed and continuous wave Doppler of his pulmonary trunk showed a normal peak systolic velocity against RV outflow tract obstruction. His pulmonary artery acceleration time was abbreviated consistent with an elevated pulmonary vascular resistance. Guided continuous wave Doppler of his tricuspid valve allowed our estimation of his right ventricular systolic pressure (moderately increased). His inferior vena cava was upper limits of normal in size with slightly reduced respiratory collapse suggestive of a central venous pressure of 5 to 10 mmHg. CONCLUSIONS: Borderline left ventricle hypertrophy with septal wall motion abnormality related to left bundle branch block yet preserved global resting systolic function. Mildly dilated left atrium with Doppler evidence of an impairment of LV diastolic function but currently normal estimated mean left atrial pressure. Normal right heart chamber sizes but Doppler evidence of moderate pulmonary hypertension. Normal IVC size with marginal reduction in collapse suggestive of central venous pressure of 5 to 10 mmHg. MTDD
--- NOTE | 2016-12-27 15:48 | DS.PDOC ---
Discharge Summary General Date of Admission Dec 25, 2016 at 01:54 Date of Discharge Dec 27, 2016 at 10:34 Attending Physician: ALLIE DANGELO MD Discharge Summary PROCEDURES PERFORMED DURING STAY: None. ADMITTING/DISCHARGE DIAGNOSES: 1. Post-Op Atelectasis 2. Diastolic Heart Failure; compensated and stable 3. Mod Pulm HTN 4. Wall motion abn on echo 5. Chronic LBBB 6. Prostate cancer status post proctectomy with Langley in place. 7. Tobacco abuse- declined nicotine patch COMPLICATIONS/CHIEF COMPLAINT: Dyspnea. HISTORY OF PRESENT ILLNESS/HOSPITAL COURSE: This is a 61-year-old male past history of prostate cancer status post proctectomy earlier this month with Dr. Martinez who presents complaining of dyspnea. Patient was found to be hypoxic as well as dyspneic on presentation. Patient was noted to have postop atelectasis, was started on incentive spirometer, nebs with improvement of his symptoms. Patient is now off oxygen, ambulating the hallways, with no desaturations. Of note the patient was also noted to have diastolic heart failure on echocardiogram. The patient is euvolemic, ambulating with no dyspnea, and his heart failure is compensated. No orthopnea/PND/lower ext edema. Patient was also noted to have pulmonary hypertension as well as wall motion abnormalities on his echocardiogram. I have discussed these echocardiogram findings with the patient and the daughter advised him to follow-up with her primary care physician this week so that he may have a cardiology referral for a stress test and further management of his heart condition. The patient does not been discharged with Lasix as his heart failure is compensated however he has been advised that he may need Lasix daily if he does start to have fluid retention. Patient states he will be following up this primary care physician's week as well as Dr. Martinez on Wednesday for reevaluation status post proctectomy. DISCHARGE MEDICATIONS: Please see below. ALLERGIES: Please see below. PHYSICAL EXAMINATION ON DISCHARGE: Vitals: (see below) General: No acute distress, laying comfortably in bed. HEENT: Moist mucous membranes. Neck: No JVD or lymphadenopathy Cardiac: RRR, No murmurs Pulm: Fine breath sounds b/l bases. No wheezing, rhonchi Abd: NT/ND + BS. Incision site clean and dry. No signs of erythema. Langley in place. Ext: No edema or cyanosis LABORATORY DATA: Please see below. IMAGING: CT Abd/pelvis 12/25/16 Impression: Disbursed intraperitoneal and abdominal wall postoperative air, as expected 3 days post robotic-assisted laparoscopic prostatectomy. No complication identified. Langley catheter in place. CTA Chest 12/25/16 COMMENTS: There is excellent opacification of pulmonary arterial system without evidence for pulmonary embolism. Aorta is of normal caliber without evidence for dissection or aneurysm. There is no evidence of pleural or parenchymal mass. There are no pleural effusions. There is no evidence of hilar or mediastinal lymphadenopathy. The heart and great vessels are within normal limits. Images of the upper abdomen demonstrate no evidence of adrenal mass. Free air under the diaphragm is noted, viscus perforation is not excluded. Follow up with CT A/P is recommended. The bony structures are free of lytic or blastic lesions. Multilevel degenerative changes are seen involving the visualized thoracolumbar spine. Scattered calcifications are seen involving the aorta and major branches compatible with atherosclerosis. IMPRESSION: No evidence for pulmonary embolism. Free air under the diaphragm is noted, viscus perforation is not excluded. Follow up with CT A/P is recommended. D/w Dr Monteiro at 10-50 pm EST. PROGNOSIS: Fair ACTIVITY: As tolerated. DIET: Low-sodium DISCHARGE PLAN/DISPOSITION: 01 Home, Self-Care. DISCHARGE INSTRUCTIONS: 1. F/u with PCP in 1 week. Advised that his PCP will need to refer him to a [facility] for stress test and further management of his diastolic heart failure/pulmonary hypertension. Daughter and patient verbalize understanding and we will be contacting their primary care physician tomorrow. DISCHARGE CONDITION: Stable. TIME SPENT ON DISCHARGE: Greater than 30 minutes. Vital Signs/I&Os Vital Signs Date Time Temp Pulse Resp B/P Pulse Ox O2 Delivery O2 Flow Rate FiO2 12/27/16 08:00 96.7 83 18 126/68 94 Room Air 12/26/16 00:00 2.0 I&O- Last 24 Hours up to 6 AM 12/27/16 06:00 Intake Total 1190 ml Output Total 1400 ml Balance -210 ml Laboratory Data Labs 24H Laboratory Tests 2 12/27/16 05:36: Anion Gap 10, Blood Urea Nitrogen 8, Creatinine 0.83, Sodium Level 137, Potassium Level 4.0, Chloride Level 102, Carbon Dioxide Level 25, Calcium Level 8.6L, Glomerular Filtration Rate > 60.0 CBC/BMP Laboratory Tests 12/27/16 05:36 Calcium Level 8.6 L, Red Blood Count 4.35, Mean Corpuscular Volume 90.9, Mean Corpuscular Hemoglobin 30.7, Mean Corpuscular Hemoglobin Concent 33.7, Red Cell Distribution Width 11.9 Microbiology Microbiology 12/24/16 Blood Culture - Preliminary, Resulted No Growth after 48 hours. All Specime... 12/24/16 Blood Culture - Preliminary, Resulted No Growth after 48 hours. All Specime... 12/24/16 Respiratory Virus Panel (PCR) ([facility]) - Final, Complete 12/24/16 Influenza Virus Type A Antigen - Final, Complete 12/24/16 Influenza Virus Type B Antigen - Final, Complete Discharge Medications Scheduled Aspirin (Aspirin EC) 81 Mg Tabec 81 MG PO DAILY (Reported) PATIENT HAS NOT TAKEN IT SINCE HIS SURGERY PER DR'S ORDERS; AROUND November Atorvastatin Calcium (Atorvastatin Calcium) 20 Mg Tab 20 MG PO DAILY (Reported ) Ciprofloxacin HCl (Cipro) 500 Mg Tab 500 MG PO BID (Reported) Docusate Sodium (Docusate Sodium) 100 Mg Cap 100 MG PO BID (Reported) Nicotine (Nicotine 14MG Patch) 1 Patch Tdsy 1 PATCH TD DAILY Vitamin D (Vitamin D) 1,000 Unit Cap 2,000 UNIT PO DAILY (Reported) PATIENT HAS NOT TAKEN IT SINCE HIS SURGERY PER DR'S ORDERS; AROUND November Scheduled PRN Ibuprofen (Ibuprofen) 200 Mg Tab 800 MG PO TID PRN PRN PAIN (Reported) Oxycodone/Acetaminophen (Percocet 5-325 mg) 1 Tab Tab 1 TAB PO Q6H PRN PRN PAIN (Reported) Polyethylene Glycol (Peg 3350) 1 Pkt Pow 1 PKT PO BIDP PRN PRN CONSTIPATION Allergies Coded Allergies: No Known Allergies (Unverified , 12/16/16) ALLIE DANGELO MD Dec 27, 2016 15:48
== END 2016-12-27 10:34 | disposition home or self-care (01) | DRG 143 ==
LOC: M ED 19:34 → M ED INP 12-25 01:54 → M PCU 12-25 16:48
PROVIDERS: ADMIT Internal Medicine; ATTEND Internal Medicine
DX: J98.11 Atelectasis (principal); I50.32 Chronic diastolic (congestive) heart failure; I27.2 Other secondary pulmonary hypertension; E55.9 Vitamin D deficiency, unspecified; C61 Malignant neoplasm of prostate; E78.5 Hyperlipidemia, unspecified; N52.9 Male erectile dysfunction, unspecified; I44.7 Left bundle-branch block, unspecified; F17.210 Nicotine dependence, cigarettes, uncomplicated; Z79.82 Long term (current) use of aspirin; Z88.8 Allergy status to other drugs, medicaments and biological substances; Z79.899 Other long term (current) drug therapy; Z98.890 Other specified postprocedural states; Z90.79 Acquired absence of other genital organ(s)

== ENCOUNTER → 2017-01-29 | Outpatient (REF) | payer BC, OTHER ==
[~2017-01-29] MED LIST changes: +ASPI81TAEC PO; +CIPR500T89 PO; +DOCU100C PO; +IBUPOTC PO; +NICO14DI20 TD; +PEG1POW PO; +PERC5TAB6 PO
== END ==
LOC: M LAB REF 13:22
PROVIDERS: ATTEND Urology
DX: N39.3 Stress incontinence (female) (male) (principal)

== ENCOUNTER → 2017-04-22 | Outpatient (CLI) | payer BC, OTHER ==
[~2017-04-22] MED LIST changes: +CIPR-249 PO; -CIPR500T89 PO; -DOCU100C PO; +DOCU100C16 PO; +PERC5TAB12 PO; -PERC5TAB6 PO; -VITA100037 PO; +VITA100067 PO
== END ==
LOC: M SMT 11:00
PROVIDERS: ATTEND Urology
DX: C61 Malignant neoplasm of prostate (principal)

== ENCOUNTER → 2017-07-21 | Outpatient (CLI) | payer BC, OTHER | LOC: M SMT 10:20 | PROVIDERS: ATTEND Urology | DX: C61 Malignant neoplasm of prostate (principal) ==

== ENCOUNTER → 2017-11-05 | Outpatient (CLI) | payer BC, OTHER ==
[2017-11-05 21:02] LABS: PROSTATIC SPECIFIC AG MONITOR < 0.01 NG/ML (< 4.0)
== END ==
LOC: M SMT 13:10
DX: C61 Malignant neoplasm of prostate (principal)
CPT/HCPCS: 84153

== ENCOUNTER → 2018-04-22 | Outpatient (CLI) | payer BC, OTHER ==
[2018-04-22 13:54] LABS: PROSTATIC SPECIFIC AG MONITOR < 0.01 NG/ML (< 4.0)
== END ==
LOC: M SMT 10:37
DX: Z85.46 Personal history of malignant neoplasm of prostate (principal)
CPT/HCPCS: 84153

== ENCOUNTER → 2018-07-20 | Outpatient (CLI) | payer BC, MEDICARE, OTHER ==
[2018-07-20 14:24] LABS: PROSTATIC SPECIFIC AG MONITOR < 0.01 NG/ML (< 4.0)
== END ==
LOC: M SMT 10:06
DX: Z85.46 Personal history of malignant neoplasm of prostate (principal)
CPT/HCPCS: 84153

== ENCOUNTER → 2018-10-27 | Outpatient (CLI) | payer MEDICARE, BC, OTHER ==
[2018-10-29 18:21] LABS: PSA TOTAL <0.1 ng/mL (0.0-4.0)
== END ==
LOC: M SMT 13:19
PROVIDERS: ATTEND Urology
DX: Z85.46 Personal history of malignant neoplasm of prostate (principal)

== ENCOUNTER → 2019-05-01 | Outpatient (CLI) | payer MEDICARE, OTHER, BC | LOC: M SMT 10:41 | PROVIDERS: ATTEND Nurse Practitioner Women's Health | DX: Z85.46 Personal history of malignant neoplasm of prostate (principal); Z08 Encounter for follow-up examination after completed treatment for malignant neoplasm ==

== ENCOUNTER → 2019-11-06 | Outpatient (CLI) | payer MEDICARE, OTHER | LOC: M PLALAB 09:56 | PROVIDERS: ATTEND Nurse Practitioner Women's Health | DX: Z85.46 Personal history of malignant neoplasm of prostate (principal) ==

== ENCOUNTER → 2020-05-06 | Outpatient (CLI) | payer MEDICARE, OTHER | LOC: M PLALAB 11:11 | PROVIDERS: ATTEND Nurse Practitioner Women's Health | DX: Z85.46 Personal history of malignant neoplasm of prostate (principal) ==

== ENCOUNTER → 2024-05-08 | Outpatient (CLI) | payer MEDICARE, BC ==
[~2024-05-08] MED LIST changes: +ASPI-310 PO; +ASPI-569 PO; -ASPI81CH17 PO; -ASPI81TAEC PO; -PEG1POW PO; +POLY17PO18 PO
== END ==
LOC: M PLARAD 11:05
PROVIDERS: ATTEND Neuromusculoskeletal Medicine & OMM
DX: R91.8 Other nonspecific abnormal finding of lung field (principal)
CPT/HCPCS: 78815; A9552